=== PATIENT | male | born 1975 | race Caucasian/White ===

== ENCOUNTER 2016-07-10 17:38 | Emergency (ER) | payer OTHER ==
[~2016-07-10] VITALS: Wt 109.0 kg
[2016-07-10] MEDS ORDERED: CARB15DR LEFT EYE (18:17)
[2016-07-10] MEDS ORDERED: PRED20TA PO (18:17)
[2016-07-10] MEDS ORDERED: VALA500T PO (18:17)
--- NOTE | 2016-07-10 18:33 | ERD ---
ER Documentation Chief Complaint Date/Time DATE: 07/10/16 TIME: 18:18 Chief Complaint LEFT SIDE PARALYSIS SINCE THURSDAY. NO MOTOR DEFICIT. NO SPEECH DEFICIT HPI Patient is a 41-year-old male with a past medical history of diabetes who presents to the emergency department with left-sided facial paralysis. Patient states that the facial paralysis started approximately 5 days ago. Patient states that he is having trouble closing his left eye completely. Patient reports decreased tear production of the left eye. Patient denies any arm or leg weakness. Patient denies any slurred speech. Patient denies any difficulty ambulating. Patient states he went to go see his dentist earlier today, given that he thought he had a toothache, who advised the patient to come to the ER. Dental exam was negative. Patient reports having URI symptoms approximately 2 weeks ago. He states that he had a runny nose, sneezing and a mild throat ache. He reports taking [id number] medication for the first time which did relieve his symptoms. Patient denies any fevers, chills, chest pain, shortness of breath, nausea, vomiting, abdominal pain. Patient has steady gait. ROS All systems reviewed and are negative except as per history of present illness. Medications Home Meds Active Scripts Carboxymethylcellulose Sodium* (Refresh Tears*) 15 Ml Drops, 2 DROP LEFT EYE QID , #1 EA Prov:ODALYS ROMEO PA-C 07/10/16 Prednisone* (Prednisone*) 20 Mg Tab, 60 MG PO DAILY for 5 Days, TAB Prov:ODALYS ROMEO PA-C 07/10/16 Valacyclovir Hcl* (Valacyclovir Hcl*) 500 Mg Tablet, 500 MG PO BID for 7 Days, TAB Prov:ODALYS ROMEO PA-C 07/10/16 PMhx/Soc History of Surgery: Yes (appendectomy) Anesthesia Reaction: No Hx Neurological Disorder: No Hx Respiratory Disorders: No Hx Cardiac Disorders: No Hx Psychiatric Problems: No Hx Miscellaneous Medical Probl: Yes (DM) Hx Alcohol Use: Yes (socially) Hx Substance Use: No Hx Tobacco Use: No FmHx Family History: diabetes Physical Exam Vitals Vital Signs Date Time Temp Pulse Resp B/P Pulse Ox O2 Delivery O2 Flow Rate FiO2 07/10/16 17:50 98.3 80 20 161/91 98 Physical Exam GENERAL: Well-developed, well-nourished male. Appears in no acute distress. Speaking in full sentences HEAD: Normocephalic, atraumatic. No deformities or ecchymosis. EYE: Pupils equal, round, and reactive to light. EOMs intact. No conjunctival erythema. No scleral icterus. No eye discharge. ENT: External ear without any masses or tenderness. Auditory canals clear bilaterally. TM visualized bilaterally, non-erythematous, non-bulging. Nasal mucosa pink with no discharge. Oropharynx is pink without any tonsillar erythema or exudates. No uvula deviation. No kissing tonsils. NECK: Supple. No lymphadenopathy or thyromegaly. No meningismus. LUNG: Clear to auscultation bilaterally. No rhonchi, wheezing, rales or coarse breath sounds. HEART: Regular rate and rhythm. No murmurs, rubs or gallops. EXTREMITIES: Equal pulses bilaterally. No peripheral clubbing, cyanosis or edema. No unilateral leg swelling. NEUROLOGIC: Alert and oriented x3, cooperative. Mood and affect appropriate to situation. Sensation intact to light touch to bilateral forehead, cheeks and chin. Incomplete closure of L eye on command. +Asymmetric smile, loss of smile on left side. +Loss of forehead creases when smiling of left side. EOMs intact. Able to distinguish soft finger rubs bilaterally. Normal speech. Motor exam: 5/ 5 strength in bilateral upper and lower extremities. Sensory exam: Sensation intact to light touch on all four extremities. Cerebellar function exam: No dysmetria on [id number]. Steady gait. Negative Brudzinski sign. Negative Kernig sign. SKIN: Normal color. Warm and dry. No rashes or lesions. Procedures/MDM MEDICAL DECISION MAKING: Patient is a 41-year-old male who presents with left-sided facial paralysis 5 days. Patient reports decreased left eye tear production and difficulty closing left eye. Patient denies any unilateral arm or leg weakness. Patient denies any slurred speech. Patient is able to speak in full sentences. Patient has normal steady gait. Vital signs were reviewed. Patient is afebrile. Patient was not hypoxic. 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 Low suspicion for CVA, intracranial hemorrhage, meningitis, otitis externa, otitis media, strep pharyngitis, conjunctivitis, eye foreign body, parotitis. PRESCRIPTION: Valacyclovir, prednisone, refresh lubricating eyedrops DISCHARGE: At this time, patient is stable for discharge and outpatient management. Advised to take prescriptions as prescribed in full. Patient advised is to obtain an eye patch to use at night. Avoid rubbing eyes. I have instructed the patient to follow-up with his/her primary care physician in 1-2 days. I have discussed with the patient the possibility of needing to see a specialist for further workup and imaging studies if symptoms persist. I have instructed the patient to promptly return to the ER for any new or worsening symptoms including increased pain, fever, nausea, vomiting, weakness or LOC. The patient and/or family expressed understanding of and agreement with this plan. All questions were answered. Home care instructions were provided. Patients blood pressure was elevated (>120/80) but appears stable without evidence of hypertensive emergency, hypertensive urgency or end-organ failure. I had discussion with the patient about the risks of hypertension. I have advised the patient to follow up with his/her primary care physician for outpatient monitoring and treatment for hypertension in 2-3 days. I have instructed the patient to return to the ER for any new or worsening symptoms including chest pain, shortness of breath, headache, blurred vision, confusion, nausea, vomiting or LOC. Departure Diagnosis: Primary Impression: King's palsy Additional Impression: H/O viral illness Condition: Stable Patient Instructions: King's Palsy Referrals: [facility] YOU HAVE RECEIVED A MEDICAL SCREENING EXAM AND THE RESULTS INDICATE THAT YOU DO NOT HAVE A CONDITION THAT REQUIRES URGENT TREATMENT IN THE EMERGENCY DEPARTMENT. FURTHER EVALUATION AND TREATMENT OF YOUR CONDITION CAN WAIT UNTIL YOU ARE SEEN IN YOUR DOCTORS OFFICE WITHIN THE NEXT 1-2 DAYS. IT IS YOUR RESPONSIBILITY TO MAKE AN APPOINTMENT FOR [facility]. IF YOU HAVE A PRIMARY DOCTOR --you should call your primary doctor and schedule an appointment IF YOU DO NOT HAVE A PRIMARY DOCTOR YOU CAN CALL OUR PHYSICIAN REFERRAL HOTLINE AT IF YOU CAN NOT AFFORD TO SEE A PHYSICIAN YOU CAN CHOSE FROM THE FOLLOWING [facility] [address] [facility] [address] [facility] [facility] [address] [facility] [address] [facility]. [facility] [address] [facility]. [address] [facility]. [facility] YOU HAVE RECEIVED A MEDICAL SCREENING EXAM AND THE RESULTS INDICATE THAT YOU DO NOT HAVE A CONDITION THAT REQUIRES URGENT TREATMENT IN THE EMERGENCY DEPARTMENT. FURTHER EVALUATION AND TREATMENT OF YOUR CONDITION CAN WAIT UNTIL YOU ARE SEEN IN YOUR DOCTORS OFFICE WITHIN THE NEXT 1-2 DAYS. IT IS YOUR RESPONSIBILITY TO MAKE AN APPOINTMENT FOR [facility]-UP CARE. IF YOU HAVE A PRIMARY DOCTOR --you should call your primary doctor and schedule and appointment IF YOU DO NOT HAVE A PRIMARY DOCTOR YOU CAN CALL OUR PHYSICIAN REFERRAL HOTLINE AT . IF YOU CAN NOT AFFORD TO SEE A PHYSICIAN YOU CAN CHOSE FROM THE FOLLOWING [facility] INSTITUTIONS: [facility] [address] [place] [address] [facility] [address] [place], [place] [id number] [place] [address] [address] [place] [address] Additional Instructions: Call your primary care doctor TOMORROW for an appointment during the next 1-2 days.See the doctor sooner or return here if your condition worsens before your appointment time. Take both prescriptions as prescribed. Avoid rubbing eyes. Use lubricating drops daily. Use eye patch at [facility]. ODALYS ROMEO PA-C Jul 10, 2016 18:30
== END 2016-07-10 18:18 | disposition home or self-care (01) ==
LOC: E/R 17:38
DX: G51.0 Bell's palsy (principal); E11.9 Type 2 diabetes mellitus without complications; Z86.19 Personal history of other infectious and parasitic diseases
CPT/HCPCS: 99284